=== PATIENT | female | born 1960 | race Caucasian/White ===

== ENCOUNTER 2017-08-05 11:47 | Emergency (ER) | payer MEDICARE ==
[2017-08-05] MEDS ORDERED: Ondansetron 4 MG/2 ML SDV IVPUSH ONE (11:52)
[2017-08-05] MEDS ORDERED: Sodium Chloride 0.9% 5 ML Syringe FLUSH PRN (11:52)
[2017-08-05] MEDS ORDERED: Sodium Chloride 0.9% 1,000 ML IV ONE (11:52)
--- NOTE | 2017-08-05 12:22 | EDM.PDOC ---
ED HPI GENERAL MEDICAL PROBLEM - General Chief Complaint: General Stated Complaint: Accidental Lamictal ingestion Time Seen by Provider: 08/05/17 11:55 Source of Information: Reports: Patient History Limitations: Reports: No Limitations - History of Present Illness INITIAL COMMENTS - FREE TEXT/NARRATIVE: 57 YO WF presents to ER complaining of accidentally taking double her daily dose of Lamictal. Pt states she took her inital 400mg dose at 5am and then accidentally took an additional 400mg at 8am. Pt states she woke at 10:30am after taking a nap and felt dizzy and nauseated. Pt reports she was not trying to her herself and is scared about taking too much. Pt takes lamictal for bipolar disorder. Pt denies SI/HI. Pt is currently alert and oriented x 4. Pt with 4 episodes of vomiting. Pt denies feeling sleepy, no headache, no chest pain, no shortness of breath. Poison control called and states not a toxic dose - supportive care recommended. Onset: Today Onset Date: 08/05/17 Onset Time: 08:00 Location: Reports: Generalized Severity: Mild Improves with: Reports: None Worsens with: Reports: None Associated Symptoms: Reports: Malaise, Nausea/Vomiting. Denies: Confusion, Chest Pain, Diaphoresis, Headaches, Rash, Seizure, Shortness of Breath, Syncope , Weakness - Related Data Allergies Allergy/AdvReac Type Severity Reaction Status Date / Time No Known Drug Allergies Allergy Cannot Verified 08/05/17 12:12 Remember Home Meds: Home Meds Dextroamphetamine/Amphetamine [Adderall 10 mg Tablet] 10 mg PO QID 08/05/17 [ History] FLUoxetine [PROzac] 30 mg PO DAILY 08/05/17 [History] Lovastatin 10 mg PO DAILY 08/05/17 [History] Ondansetron [Zofran ODT] 4 mg PO Q6H PRN #10 tab.dis 08/05/17 [Rx] lamoTRIgine 400 mg PO DAILY 08/05/17 [History] ED ROS GENERAL - Review of Systems Review Of Systems: See Below Constitutional: Reports: No Symptoms HEENT: Reports: No Symptoms Respiratory: Reports: No Symptoms Cardiovascular: Reports: No Symptoms Endocrine: Reports: No Symptoms GI/Abdominal: Reports: Nausea, Vomiting. Denies: Abdominal Pain : Reports: No Symptoms Musculoskeletal: Reports: No Symptoms Skin: Reports: No Symptoms Neurological: Reports: No Symptoms Psychiatric: Reports: Anxiety. Denies: Agitation, Confusion, Depression, Hallucinations, Homicidal Ideation, Mood Lability, Suicidal Ideation Hematologic/Lymphatic: Reports: No Symptoms Immunologic: Reports: No Symptoms ED EXAM, GENERAL - Physical Exam Exam: See Below Exam Limited By: No Limitations General Appearance: Alert, WD/WN, No Apparent Distress Head: Atraumatic, Normocephalic Neck: Normal Inspection, Supple, Non-Tender, Full Range of Motion Respiratory/Chest: No Respiratory Distress, Lungs Clear, Normal Breath Sounds, No Accessory Muscle Use, Chest Non-Tender Cardiovascular: Normal Peripheral Pulses, Regular Rate, Rhythm, No Edema, No Gallop, No JVD, No Murmur, No Rub GI/Abdominal: Normal Bowel Sounds, Soft, Non-Tender, No Organomegaly, No Distention, No Abnormal Bruit, No Mass Back Exam: Normal Inspection, Full Range of Motion, NT Extremities: Normal Inspection, Normal Range of Motion, Non-Tender, Normal Capillary Refill, No Pedal Edema Neurological: Alert, Oriented, CN II-XII Intact, Normal Cognition, Normal Gait, Normal Reflexes, No Motor/Sensory Deficits Psychiatric: Normal Affect, Normal Mood Skin Exam: Warm, Dry, Intact, Normal Color, No Rash Lymphatic: No Adenopathy Course - Vital Signs Last Recorded V/S: Last Vital Signs Temp 35.1 C L 08/05/17 12:30 Pulse 90 08/05/17 12:30 Resp 20 08/05/17 12:30 BP 111/45 L 08/05/17 12:30 Pulse Ox 98 08/05/17 12:30 - Orders/Labs/Meds Orders: Active Orders 24 hr Category Date Time Status Peripheral IV Care [RC] . DIRECTED Care 08/05/17 11:53 Active Sodium Chloride 0.9% [Normal Saline] 1,000 ml Med 08/05/17 11:52 Active IV .BOLUS Sodium Chloride 0.9% [Syrex Flush] Med 08/05/17 11:52 Active 5 ml FLUSH Q8HR PRN Peripheral IV Insertion Adult [OM.PC] Routine Oth 08/05/17 11:52 Ordered Medication Orders Sodium Chloride (Normal Saline) 1,000 mls @ 999 mls/hr IV .BOLUS ONE Stop: 08/05/17 12:52 Last Admin: 08/05/17 12:00 Dose: 999 mls/hr Sodium Chloride (Syrex Flush) 5 ml FLUSH Q8HR PRN PRN Reason: Keep Vein Open Labs: Laboratory Tests 08/05/17 08/05/17 Range/Units 12:00 12:00 WBC 8.1 (5.0-10.0) 10^3/uL RBC 4.41 (3.80-5.50) 10^6/uL Hgb 14.1 (12.0-16.0) g/dL Hct 41.5 (37.0-47.0) % MCV 94.0 H (82.0-92.0) fL MCH 31.9 H (27.0-31.0) pg MCHC 33.9 (32.0-36.0) g/dL RDW 12.6 (11.5-14.5) % Plt Count 334 H (150-300) 10^3/uL MPV 7.0 L (7.4-10.4) fL Neut % (Auto) 68.5 (50.0-70.0) % Lymph % (Auto) 21.9 (20.0-40.0) % [place] % (Auto) 8.0 (2.0-8.0) % Eos % (Auto) 1.0 (1.0-3.0) % Baso % (Auto) 0.6 (0.0-1.0) % Neut # (Auto) 5.6 (2.5-7.0) 10^3/uL Lymph # (Auto) 1.8 (1.0-4.0) 10^3/uL [place] # (Auto) 0.6 (0.1-0.8) 10^3/uL Eos # (Auto) 0.1 (0.1-0.3) 10^3/uL Baso # (Auto) 0.0 (0.0-0.1) 10^3/uL Sodium 149 H (136-145) mmol/L Potassium 4.3 (3.3-5.3) mmol/L Chloride 107 (98-115) mmol/L Carbon Dioxide 23.1 (21.0-32.0) mmol/L BUN 23 (6-25) mg/dL Creatinine 0.76 (0.51-1.17) mg/dL Est Cr Clr Drug Dosing TNP Estimated GFR (MDRD) > 60 mL/min Glucose 121 H (70-110) mg/dL Calcium 9.3 (8.7-10.3) mg/dL Total Bilirubin 0.2 (0.2-1.0) mg/dL AST 19 (15-37) U/L ALT 21 (12-78) U/L Alkaline Phosphatase 84 (46-116) IU/L Total Protein 6.9 (6.4-8.2) g/dL Albumin 3.73 (3.00-4.80) g/dL Lipase 166 (73-393) U/L Meds: Medications Generic Name Dose Route Start Last Admin Trade Name Freq PRN Reason Stop Dose Admin Sodium Chloride 1,000 mls @ 999 mls/hr 08/05/17 11:52 08/05/17 12:00 Normal Saline IV 08/05/17 12:52 999 mls/hr .BOLUS ONE Administration Sodium Chloride 5 ml 08/05/17 11:52 Syrex Flush FLUSH Q8HR PRN Keep Vein Open Discontinued Medications Generic Name Dose Route Start Last Admin Trade Name Freq PRN Reason Stop Dose Admin Ondansetron HCl 4 mg 08/05/17 11:52 08/05/17 12:00 Zofran IVPUSH 08/05/17 11:53 4 mg ONETIME ONE Administration - Re-Assessments/Exams Free Text/Narrative Re-Assessment/Exam: 08/05/17 12:42 Pt is awake and alert. Pt reports vomiting and nausea have resolved. Pt denies any complaints at this time and feels well enough to go home accompanied by her Departure - Departure Time of Disposition: 12:45 Disposition: Home, Self-Care 01 Condition: Good Clinical Impression: Drug ingestion, accidental Qualifiers: Encounter type: initial encounter Qualified Code(s): T50.901A - Poisoning by unspecified drugs, medicaments and biological substances, accidental ( unintentional), initial encounter - Discharge Information Prescriptions: Ondansetron [Zofran ODT] 4 mg PO Q6H PRN #10 tab.dis PRN Reason: Nausea/Vomiting Instructions: Accidental Overdose Referrals: PCP,Not In Area [Primary Care Provider] - Forms: ED Department Discharge - My Orders Last 24 Hours: My Active Orders 08/05/17 11:52 Sodium Chloride 0.9% [Normal Saline] 1,000 ml IV .BOLUS Sodium Chloride 0.9% [Syrex Flush] 5 ml FLUSH Q8HR PRN Peripheral IV Insertion Adult [OM.PC] Routine 08/05/17 11:53 Peripheral IV Care [RC] . DIRECTED - Assessment/Plan Last 24 Hours: My Active Orders 08/05/17 11:52 Sodium Chloride 0.9% [Normal Saline] 1,000 ml IV .BOLUS Sodium Chloride 0.9% [Syrex Flush] 5 ml FLUSH Q8HR PRN Peripheral IV Insertion Adult [OM.PC] Routine 08/05/17 11:53 Peripheral IV Care [RC] . DIRECTED Assessment:: 1. Accidental Lamictal ingestion 2. vomiting Plan: 1. Discharge home 2. hold Lamictal until 08/06/2017 for evening dose 3. zofran for nausea/vomiting 4. follow up with PCP for further evaluation and treatment 5. return to ER for worsening symptoms
[2017-08-05 12:28] LABS: CHLORIDE,CL 107 mmol/L (98-115); SODIUM,NA 149 mmol/L (136-145)
== END 2017-08-05 13:05 | disposition home or self-care (01) ==
LOC: KA.ED 11:47
DX: T42.6X1A Poisoning by other antiepileptic and sedative-hypnotic drugs, accidental (unintentional), initial encounter (principal); R42 Dizziness and giddiness; R11.2 Nausea with vomiting, unspecified; Z79.899 Other long term (current) drug therapy
CPT/HCPCS: 80053; 83690; 85025; 96361; 96374; 99284; J2405; J7030